=== PATIENT | male | born 1935 | race Two or more races ===

== ENCOUNTER 2023-05-25 10:02 | Outpatient (RCR) | payer MEDICARE, OTHER, SELFPAY ==
[2023-05-25] MEDS: [UNRECOGNIZED DRUG - OTHER] 100 MG IV (10:35)
[2023-05-25 10:44] VITALS: BP 132/60
[2023-05-25 11:20] VITALS: BP 129/60
== END 2023-06-10 23:59 | disposition home or self-care (01) ==
LOC: OID 10:02
PROVIDERS: ATTENDING PHYSICIAN Internal Medicine Rheumatology; FAMILY PHYSICIAN Internal Medicine
DX: M05.60 Rheumatoid arthritis of unspecified site with involvement of other organs and systems (principal)
CPT/HCPCS: 96365; J1602

== ENCOUNTER 2023-07-20 09:49 | Outpatient (RCR) | payer MEDICARE, OTHER, SELFPAY ==
[2023-07-20] MEDS: [UNRECOGNIZED DRUG - OTHER] 100 MG IV (10:32)
[2023-07-20 10:38] VITALS: BP 146/83
== END 2023-07-23 08:31 | disposition home or self-care (01) ==
LOC: OID 09:49
PROVIDERS: ATTENDING PHYSICIAN Internal Medicine Rheumatology; FAMILY PHYSICIAN Internal Medicine
DX: M05.60 Rheumatoid arthritis of unspecified site with involvement of other organs and systems (principal)
CPT/HCPCS: 96365; J1602

== ENCOUNTER 2023-07-28 12:21 | Emergency (ER) | payer MEDICARE, OTHER, SELFPAY ==
[2023-07-28 12:24] VITALS: BP 175/85
--- NOTE | 2023-07-28 12:39 | ED.GENMED ---
History of Present Illness
General
Chief Complaint: Nose Bleed
Time Seen by Provider: 07/28/23 12:39
Travel History
Have you had any contact with someone who has COVID-19?: No
Do you have any symptoms of coronavirus? Fever > 100 degrees, chills, cough, shortness of breath, sore throat, loss of taste or smell, muscle aches, or headache?: No
History of Present Illness
History of Present Illness:
88-year-old male presents to the emergency department for evaluation of a spontaneous nosebleed on the right that began earlier today and has not stopped despite direct pressure. Does not take anticoagulants
Past History
Past History
ED Past Medical History: NIDDM, Other and Other (Rheumatoid arthritis)
ED Past Surgical History: None
Social History
Tobacco: Former smoker
Alcohol: None
Drug: None
Personal:
Living: with family
Employment: Retired
Review of Systems
Review of Systems
Allergies reviewed?: Yes
All Other Systems: ROS reviewed and negative except as documented in HPI and ROS
Phy Exam
Physical Exam
Physical Exam:
GEN: Well appearing, NAD, WDWN
HEENT: Oral mucosa moist, no scleral icterus. No evidence for anterior epistaxis on the right, clot noted in the anterior nare
Cardiac: Regular rate
Lung: No respiratory distress, no tachypnea
MSK: No gross deformity or injuries
Skin: Good color, no pallor or jaundice, no rashes
Neuro: AO x3, moves all extremities freely
Psych: Calm, cooperative
Course
Vital Signs
Initial and Last Documented VS:
Initial Vital Signs
Temp Pulse Resp BP Pulse Ox
98.9 F 60 20 175/85 95
07/28/23 12:24 07/28/23 12:24 07/28/23 12:24 07/28/23 12:24 05/18/24 12:24
Last Documented Vital Signs
Temp Pulse Resp BP Pulse Ox
98.9 F 60 20 175/85 95
07/28/23 12:24 07/28/23 12:24 07/28/23 12:24 07/28/23 12:24 07/28/23 12:24
Comment
Comment:
There was irrigated and packed with 4.5 cm anterior Merisel pack infused with lidocaine and epinephrine. Packing was removed 45 minutes later with good hemostasis. Cautery was performed to the site of bleeding using silver nitrate, no further
bleeding was observed in the emergency department. Discussed need for saline spray
*Critical Care Note
Total Time (30-74mins, 75-104mins- exclusive of procedures): Not Applicable
ED Attending Note
-
Portions of this chart may have been created with voice recognition software.� Occasional wrong word or��sound alike� substitutions may have occurred due to the inherent limitations of voice recognition software.
Discharge Plan
Departure
Patient Disposition: Home (Routine Discharge)
Date of Disposition: 07/28/23
Time of Disposition: 14:17
Patient with high blood pressure during this ER visit?: No
Discharge Problem:
Right-sided epistaxis
Instructions: Nosebleeds (DC)
Prescriptions:
No Action
folic acid 1 MG tablet
1 mg PO DAILY
hydroxychloroquine 200 MG tablet
400 mg PO DAILY
calcium carbonate-vitamin D3 1 EACH tablet
1 ea PO DAILY
cholecalciferol (vitamin D3) [Vitamin D3] 400 UNITS tablet
400 units PO DAILY
metformin 500 mg Tablet
500 mg PO BID
simvastatin 20 mg Tablet
20 mg PO HS
aspirin 81 mg Tablet,Chewable
81 mg PO DAILY
Referrals:
UNKNOWN - PT DOES,NOT KNOW [Family Provider] -
Activity Restrictions/Additional Instructions:
Use over the counter saline spray twice daily to decrease chances of repeat bleeding
DO NOT BLOW YOUR NOSE FOR 24 HOURS
Interventions
Interventions:
*Risk Screen - Suicide Last Done: 07/28/23 12:22
*General Assessment Last Done: 07/28/23 12:22
*Neglect/Abuse Screening Last Done: 07/28/23 12:22
ED- Fall Risk Assessment Last Done: 07/28/23 12:29
*ED COVID-19 Vaccine History Last Done: 07/28/23 12:29
*Nursing Disposition Last Done: 07/28/23 14:22
ED-EENT Assessment Last Done: 07/28/23 12:29
Discharge Date and Time
Discharge Date/Time: 07/28/23 14:23
Print Language: NAURUAN
== END 2023-07-28 14:23 | disposition home or self-care (01) ==
LOC: EMR 12:21
PROVIDERS: EMERGENCY PHYSICIAN Emergency Medicine
DX: R04.0 Epistaxis (principal); E11.9 Type 2 diabetes mellitus without complications; M06.9 Rheumatoid arthritis, unspecified; Z87.891 Personal history of nicotine dependence; Z79.82 Long term (current) use of aspirin
CPT/HCPCS: 99283; 30901

== ENCOUNTER 2023-09-14 09:22 | Outpatient (RCR) | payer MEDICARE, OTHER, SELFPAY ==
[2023-09-14] MEDS: [UNRECOGNIZED DRUG - OTHER] 100 MG IV (10:31)
[2023-09-14 10:42] VITALS: BP 150/57
== END 2023-09-17 08:56 | disposition home or self-care (01) ==
LOC: OID 09:22
PROVIDERS: ATTENDING PHYSICIAN Internal Medicine Rheumatology; FAMILY PHYSICIAN Internal Medicine
DX: M05.60 Rheumatoid arthritis of unspecified site with involvement of other organs and systems (principal)
CPT/HCPCS: 96365; J1602

== ENCOUNTER 2023-11-09 09:10 | Outpatient (RCR) | payer MEDICARE, OTHER, SELFPAY ==
[2023-11-09] MEDS: [UNRECOGNIZED DRUG - OTHER] 100 MG IV (09:54)
[2023-11-09 10:01] VITALS: BP 137/52
== END 2023-11-10 23:59 | disposition home or self-care (01) ==
LOC: OID 09:10
PROVIDERS: ATTENDING PHYSICIAN Internal Medicine Rheumatology; FAMILY PHYSICIAN Internal Medicine
DX: M05.79 Rheumatoid arthritis with rheumatoid factor of multiple sites without organ or systems involvement (principal)
CPT/HCPCS: 96365; J1602

== ENCOUNTER 2024-01-04 09:54 | Outpatient (RCR) | payer MEDICARE, OTHER, SELFPAY ==
[2024-01-04 10:00] VITALS: BP 120/86
[2024-01-04] MEDS: [UNRECOGNIZED DRUG - OTHER] 100 MG IV (10:12)
[2024-01-04 10:42] VITALS: BP 135/70
== END 2024-01-07 09:21 | disposition home or self-care (01) ==
LOC: OID 09:54
PROVIDERS: ATTENDING PHYSICIAN Internal Medicine Rheumatology; FAMILY PHYSICIAN Internal Medicine
DX: M05.79 Rheumatoid arthritis with rheumatoid factor of multiple sites without organ or systems involvement (principal)
CPT/HCPCS: 96365; J1602

== ENCOUNTER 2024-02-29 09:53 | Outpatient (RCR) | payer MEDICARE, OTHER, SELFPAY ==
[2024-02-29 10:00] VITALS: BP 174/83
[2024-02-29] MEDS: [UNRECOGNIZED DRUG - OTHER] 100 MG IV (10:15)
[2024-02-29 11:09] VITALS: BP 151/79
== END 2024-03-03 09:53 | disposition home or self-care (01) ==
LOC: OID 09:53
PROVIDERS: ATTENDING PHYSICIAN Internal Medicine Rheumatology; FAMILY PHYSICIAN Internal Medicine
DX: M05.79 Rheumatoid arthritis with rheumatoid factor of multiple sites without organ or systems involvement (principal)
CPT/HCPCS: 96365; J1602

== ENCOUNTER 2024-03-14 22:39 | Observation (INO) | payer MEDICARE, OTHER, SELFPAY ==
[2024-03-14] VITALS (12 sets, daily range): BP systolic 124–203; BP diastolic 62–106; BMI 19.9
[2024-03-14 15:26] LABS: Venous Blood Gas B.E. -1.1 mmol/L (-4 to +4); Venous Blood Gas HCO3 24.8 mmol/L (22-27); Venous Blood Gas O2 Sat % 44.5 %; Venous Blood Gas pCO2 45 mmHg (35-48); Venous Blood Gas pH 7.35 (7.32-7.43); Venous Blood Gas pO2 30 mmHg (30-50)
[2024-03-14 15:28] LABS: % Basophils 0.5 % (0-2); % Eosinophils 1.2 % (0-6); % Immature Granulocytes 0.7 % (0-0.5); % Lymphocytes 23.5 % (20.5-51.1); % Monocytes 9.8 % (1.7-9.3); % Neutrophils 64.3 % (42.2-75.2); Absolute Eosinophils 0.1 10^3/uL (0-0.7); Absolute Lymphocytes 1.4 10^3/uL (1.2-3.4); Absolute Monocytes 0.6 10^3/uL (0.1-0.6); Absolute Neutrophils 3.9 10^3/uL (1.4-6.5); Hematocrit 41.6 % (39.0-52.0); Hemoglobin 13.3 g/dL (13.0-18.0); Mean Corpuscular Volume 87.6 fL (80.0-94.0); Mean Platelet Volume 8.7 fL (7.4-10.4); Nucleated Red Blood Cells % 0 % (-); Platelet Count 222 10^3/uL (130-400); Red Blood Cell Count 4.75 10^6/uL (4.70-6.10); Red Cell Dist. Width 16.8 % (11.5-14.5)
[2024-03-14 15:44] LABS: Lactic Acid 2.7 mmol/L (0.7-2.0)
[2024-03-14 16:10] LABS: ALT (SGPT) 22 U/L (0-50); AST (SGOT) 30 U/L (17-59); Alkaline Phosphatase 90 U/L (38-126); Blood Urea Nitrogen 33 mg/dl (9-20); Calcium 9.7 mg/dl (8.4-10.2); Carbon Dioxide 25 mmol/L (22-30); Chloride 104 mmol/L (98-107); Glucose 153 mg/dl (70-99); Potassium 6.3 mmol/L (3.5-5.1); Sodium 138 mmol/L (135-145); Total Bilirubin 0.3 mg/dl (0.2-1.3); Total Protein 7.1 g/dl (6.3-8.2); eGFR > 60.00
[2024-03-14 16:30] LABS: B-Hydroxybutyrate 0.16 mmol/L (0.02-0.27)
--- NOTE | 2024-03-14 18:16 | EDRN ---
Dr. Orr in room w/pt
[2024-03-14 19:02] LABS: Glucose - Point of Care 91 mg/dl (70-99)
[2024-03-14] MEDS: NSS 1000 IV ×2 (19:04→23:02)
--- NOTE | 2024-03-14 19:10 | ED.GENMED ---
History of Present Illness
General
Chief Complaint: Abnormal Lab Value
Source: patient and family (I spoke to the patient's son over the phone who is a hospitalist at another hospital)
Exam Limitations: none
Time Seen by Provider: 03/14/24 17:31
Nursing documentation reviewed up to this point in time: agreed with
History of Present Illness
History of Present Illness:
The patient is a pleasant 88-year-old man with a past medical history of insulin-dependent diabetes who recently stopped taking insulin due to episodes of hypoglycemia. Patient also has a history of rheumatoid arthritis and recently had outpatient
blood work ordered by his food service agent. His food service agent notified the patient that his potassium was elevated as well as his anion gap, which prompted him to come to the ED for further evaluation. Patient complains of just feeling very
fatigued but has no specific symptoms. He denies cough and fever. Patient denies nausea and vomiting. He denies diarrhea. He denies chest pain or shortness of breath. His son reports that he seemed short of breath earlier today which is unusual
for him.
Past History
Past History
ED Past Medical History: IDDM and Other (Rheumatoid arthritis)
ED Past Surgical History: None
Social History
Tobacco: Former smoker
Alcohol: None
Drug: None
Personal:
Living: with family
Employment: Retired
Family History
Family History: Other
Review of Systems
Review of Systems
Allergies reviewed?: Yes
All Other Systems: ROS reviewed and negative except as documented in HPI and ROS
Constitutional: Reports fatigue
EENT: Reports no symptoms
Respiratory: Reports no symptoms
Cardiac: Reports no symptoms
ABD/GI: Reports no symptoms
: Reports no symptoms
Musculoskeletal: Reports no symptoms
Skin: Reports no symptoms
Neurological: Reports no symptoms
Endocrine: Reports no symptoms
Hematologic/Lymphatic: Reports no symptoms
Psychiatric: Reports no symptoms
Phy Exam
Physical Exam
Physical Exam:
Physical Exam
General: no apparent distress, not acutely ill
Neck: supple. no meningeal signs. normal psoterior pharynx
Heart: s1/s2 regular rate and rhythm, no murmur. equal radial pulses.
Lungs: no acute respiratory distress. clear bilaterally
Abdomen: normal bowel sounds. not tender. no CVAT
Neuro: alert and oriented. no focal neurological deficits
Skin: no rash
Psychiatric: well kept. interactive and cooperative
Extremities: no edema. no calf tenderness. negative homans. good distal pulses
Course
Orders/Labs/Results
Orders:
Orders
03/14/24 15:14
B-Hydroxybutyrate Urgent
Complete Blood Count/With Diff Urgent
Comprehensive Metabolic Panel Urgent
Lactic Acid Urgent
Venous Blood Gas Urgent
%Oxygen/Room Air: ra
03/14/24 16:41
Electrocardiogram (*1) Urgent
Reason for Study: QTc Monitoring
EKG- Treatment ONCE
03/14/24 18:25
0.9% Sodium Chloride 1000 ml [Nss] 1,000 ml IV BOLUS
CR Chest - 2 Views Urgent
Comment:
Reason For Exam: SOB
03/14/24 18:31
Calcium Gluconate 1,000 mg IV NOW STA
Dextrose 50%-Water [Dextrose 50% Syringe] 12.5 grams IV [id number] PRN
Dextrose 50%-Water [Dextrose 50% Syringe] 25 grams IV NOW STA
Insulin Human Regular [Novolin R] 10 units IV NOW STA
03/14/24 18:33
Bedside Glucose PRE IV Insulin- HyperK+ NOW
03/14/24 19:07
Insulin Human Regular [Novolin R] 5 units IV NOW STA
03/14/24 19:09
Dextrose 50%-Water [Dextrose 50% Syringe] 12.5 grams IV [id number] PRN
Dextrose 50%-Water [Dextrose 50% Syringe] 25 grams IV NOW STA
Insulin Human Regular [Novolin R] 5 units IV NOW STA
Bedside Glucose PRE IV Insulin- HyperK+ NOW
03/14/24 20:03
Bedside Glucose POST IV Insulin- HyperK+ Q1HX2,Q2HX2
03/14/24 20:06
Metoprolol [Lopressor] 25 mg PO NOW STA
03/14/24 20:24
Urinalysis Reflex To Culture Urgent
Date Specimen was Collected: 03/14/24
Time Specimen was Collected: 20:17
03/14/24 20:39
Bedside Glucose POST IV Insulin- HyperK+ Q1HX2,Q2HX2
03/14/24 22:00
Flush (0.9% Sodium Chloride) [Flush (Nss)] See Dose Instructions IV PER PROTOCOL
Abnormal Lab Results
03/14/24 03/14/24 03/14/24
15:14 20:24 21:15
MCHC 32.0 L g/dL
(33.0-37.0)
RDW 16.8 H %
(11.5-14.5)
Immature Gran % 0.7 H %
(0-0.5)
Monocytes % 9.8 H %
(1.7-9.3)
Potassium 6.3 H* mmol/L
(3.5-5.1)
BUN 33 H mg/dl
(9-20)
Glucose 153 H mg/dl
(70-99)
Lactic Acid 2.7 H mmol/L
(0.7-2.0)
Urine Glucose 1+ A
(Negative)
POC Glucose 155 H mg/dl
(70-99)
03/14/24 15:14
03/14/24 21:39
Vital Signs
Initial and Last Documented VS:
Initial Vital Signs
Temp Pulse BP Pulse Ox
96.4 F L 60 156/88 94
03/14/24 14:49 03/14/24 14:49 03/14/24 14:49 03/14/24 14:49
Last Documented Vital Signs
Temp Pulse Resp BP Pulse Ox
97.9 F 78 18 154/72 100
03/14/24 14:58 03/14/24 21:30 03/14/24 21:30 03/14/24 21:00 03/14/24 21:30
MDM/Problems Addressed
Differential Diagnosis Includes:
DKA, acute dehydration, acute renal failure
MDM/Problems Addressed:
Patient presents with acute fatigue
Chronic conditions affecting care: DM
Acute Exacerbation and/or Progression of Chronic Illness:
Patient may have acute hyperglycemia and DKA
*Radiology
Radiology exam reviewed: preliminary read by ED provider (Chest x-ray read by me. Increased lung markings bilaterally) and radiology read reviewed
*Pulse Oximetry
Patient hypoxic: no
*EKG
Interpreted by ED Provider?: Yes
Interpretation: abnormal
Comparison EKG: no comparison EKG present
Rate: bradycardiac
Rhythm: sinus
[place]: normal axis
Interval: normal interval
QRS Pattern: normal QRS
Ischemia: non-specific ST changes
*Home Health Occupational Therapist Interpretation
Rate: normal
Interpretation: normal
Rhythm: sinus
*Critical Care Note
Total Time (30-74mins, 75-104mins- exclusive of procedures): Not Applicable
Data Reviewed
Review of Other/Old Records Reveals: Other (Outpatient history and physical reviewed by me from 02/2024 which shows patient has RA with no organ involvement)
ED Attending Note
-
Portions of this chart may have been created with voice recognition software.� Occasional wrong word or��sound alike� substitutions may have occurred due to the inherent limitations of voice recognition software.
Discharge Plan
Departure
Patient Disposition: Admit
Date of Disposition: 03/14/24
Time of Disposition: 20:27
Admit to: Telemetry
Presentation/result/management discussed w/ accepting MD/DO: Hospitalist
Patient with high blood pressure during this ER visit?: Yes
Condition: Good
Covid-19: Not Applicable
Discharge Problem:
Acidosis, lactic, Acute hyperglycemia
Prescriptions:
No Action
folic acid 1 MG tablet
1 mg PO DAILY
hydroxychloroquine 200 MG tablet
200 mg PO DAILY
metformin 500 mg Tablet
500 mg PO BID
Theragen Tablet
1 tab PO DAILY
calcium carbonate-vitamin D3 [Calcium + D] 600 mg-5 mcg (200 unit) Tablet
1 tab PO DAILY
tamsulosin 0.4 mg Capsule
0.4 mg PO HS
metoprolol succinate 25 mg Tablet Extended Release 24 Hr
25 mg PO BID
rosuvastatin 10 mg Tablet
10 mg PO DAILY
Referrals:
Timothy Villalobos MD [Family Provider] -
Interventions
Interventions:
*Risk Screen - Suicide Last Done: 03/14/24 17:58
*General Assessment Last Done: 03/14/24 17:58
*Neglect/Abuse Screening Last Done: 03/14/24 17:58
ED- Fall Risk Assessment Last Done: 03/14/24 17:58
*ED COVID-19 Vaccine History Last Done: 03/14/24 17:58
NW-Jiqedb-Sorgpsinmi Assessment Last Done: 03/14/24 17:58
Discharge Date and Time
Print Language: BULGARIAN
[2024-03-14] MEDS: DEXTROSE 50% SYRINGE 25 GRAMS IV (19:11)
[2024-03-14] MEDS: NOVOLIN R 5 UNITS IV (19:12)
[2024-03-14] MEDS: CALCIUM GLUCONATE 1000 MG IV (19:12)
[2024-03-14 20:12] LABS: Glucose - Point of Care 89 mg/dl (70-99)
[2024-03-14] MEDS: LOPRESSOR 25 MG PO (20:17)
[2024-03-14 20:35] LABS: Urine Albumin Negative (Neg - Trace); Urine Bilirubin Negative (Negative); Urine Character Clear (Clear); Urine Color Yellow; Urine Glucose 1+ (Negative); Urine Ketone Negative (Negative); Urine Leukocyte Negative (Negative); Urine Nitrite Negative (Negative); Urine Occult Blood Negative (Negative); Urine Specific Gravity 1.015 (<1.030); Urine Urobilinogen Negative (Neg - 1+)
[2024-03-14 21:16] LABS: Glucose - Point of Care 155 mg/dl (70-99)
--- NOTE | 2024-03-14 21:35 | HPS.HSE ---
Family Physician
-
Family Physician: Timothy Villalobos
Chief Complaint
-
Hyperkalemia
History of Present Illness
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
Patient has a history of qrg-qpeckmj-vdncdxccw diabetes currently on metformin, and rheumatoid arthritis on biologic and hydroxychloroquine, previously on steroids and Rituxan, hypertension and hyperlipidemia as well as BPH who presents to the
emergency department with hyperkalemia. He gets infusions of Biologics every 8 weeks and gets routine blood work. He reports that on routine blood work recently had elevated potassium and he was sent to the emergency department for further
evaluation. Initially family thought that he was having DKA but patient has been always had good glucose control his blood glucose was high as 160 at home. He was not tachypneic. He has no recent episodes of diarrhea nausea or vomiting. He has
no acute medication changes. Blood pressure has been stable. Patient himself denies any symptoms. He is a former smoker and no history of COPD exacerbation.
On arrival in the ED he was hypertensive to 154/70 pulse of 82 was not saturation of 99% on room air. X-ray shows emphysema with some pulmonary fibrosis. ECG shows a sinus bradycardia at a rate of 58. No hyperacute T waves. No acute ST or T wave
changes. His potassium was 6.3. Lactic acid was 2.7. His bicarb is 25 and he has a normal anion gap. BUN 33 creatinine 1.0. Glucose 153. VBG shows a pH of 7.35.
Medical History
Past Medical History
Past Medical History: Reports COPD and HTN
Additional Past Medical History:
Rheumatoid arthritis
BPH
Past Surgical History: Reports Other
Social History
Tobacco: Former Smoker
Alcohol: None
Drug: None
Personal: Single
Living: With Family
Family History
Family History: Not pertinent
Allergies / Home Medications
Allergies reflects when Allergies were last updated in [facility].
Home Medications with original date entered in [facility]
Allergy/Medication List:
Allergies
Allergy/AdvReac Type Severity Reaction Status Date / Time
No Known Allergies Allergy Verified 03/14/24 14:58
Home Medications
folic acid 1 mg tablet 1 mg PO DAILY 07/16/12
hydroxychloroquine 200 mg tablet 200 mg PO DAILY 07/16/12
metformin 500 mg tablet 500 mg PO BID 07/07/22
calcium 600 mg (as carbonate)-vitamin D3 5 mcg (200 unit) tablet 1 tab PO DAILY 03/14/24
metoprolol succinate 25 mg tablet,extended release 24 hr 25 mg PO BID 03/14/24
rosuvastatin 10 mg tablet 10 mg PO DAILY 03/14/24
tamsulosin 0.4 mg capsule 0.4 mg PO HS 03/14/24
therapeutic multivitamin 1 tab PO DAILY 03/14/24
Review of Systems
-
History Source: Family
Constitutional: Reports No Symptoms
EENT: Reports No Symptoms
Respiratory: Reports No Symptoms
Cardiac: Reports No Symptoms
Abdomen/GI: Reports No Symptoms
: Reports No Symptoms
Musculoskeletal: Reports No Symptoms
Skin: Reports No Symptoms
Neurological: Reports No Symptoms
Endocrine: Reports No Symptoms
Hematologic/Lymphatic: Reports No Symptoms
Psych: Reports No Symptoms
Physical Exam
Vital Signs
Vital Signs
Temp Pulse Resp BP Pulse Ox
97.9 F 78 18 154/72 100
03/14/24 14:58 03/14/24 21:30 03/14/24 21:30 03/14/24 21:00 03/14/24 21:30
Physical Exam
General: Well Developed, Well Nourished, No Apparent Distress and Comfortable
HEENT: NormoCephalic, Anicteric, Moist mucous membranes and Atraumatic
Respiratory: Clear
Cardiac: S1/S2 and Regular Rhythm
Breast: Deferred by me
GI: Soft, Non Tender, Non Distended and Normal Bowel Sounds
Rectal: Deferred by Provider
Genito-urinary: Deferred by me
Musculoskeletal: No Clubbing, No Cyanosis and No Edema
Neuro: AO x 3 and Nonfocal/grossly intact
Hematologic/Lymphatic: No Lymphadenopathy
Psych: Calm
Laboratory Results
-
03/14/24 15:14
03/14/24 21:39
Laboratory Results
Lactic Acid 2.7 mmol/L (0.7-2.0) H 03/14/24 15:14
Total Bilirubin 0.3 mg/dl (0.2-1.3) 03/14/24 15:14
AST 30 U/L (17-59) 03/14/24 15:14
ALT 22 U/L (0-50) 03/14/24 15:14
Alkaline Phosphatase 90 U/L (38-126) 03/14/24 15:14
Data Reviewed
-
Diagnostic Radiology: Image Personally Visualized and interpreted and Report Reviewed by me
Medical Tests (Nuc Med, Echo, EKG etc): Image Personally Visualized and interpreted
Lab Data: Labs Reviewed by me
Old Records: Reviewed
Impression/Plan
-
IMPRESSION:
88-year-old with history of rheumatoid arthritis on biologic and Plaquenil, hypertension and hyperlipidemia with preserved renal function presents to the emergency department with a next unexplained hyperkalemia. K of 6.5, no anion gap with a
normal bicarb. pH 7.35. Creatinine stable at 1.0, BUN is elevated at 33. Rest of the labs are unremarkable with a normal hemoglobin. He is hypertensive. Lactic acid is still elevated at 2.7 without any evidence of acute infection or sepsis.
PLAN:
1. Hyperkalemia
- admit to telemetry
- s/p insulin/dextrose in ED
- will give lokelma 10 x 1 now
- repeat K in 4 hours.
- etiology unclear at this time includes shifts, occult bleeding (unlikely), adrenal insufficiency (also unlikely) - > check orthostatics, fecal occult stool and am cortisol
- nephrology consult.
2. Lactic acidosiss - Unclear etiology no evidence of acute infection, no abdominal pain/anorexia, no etoh, no dka, no significant dehydration
- stop metformin
- start sitagliptin (d/w family)
- iv fluids overnight
3. DM II
- sitagliptin
- insulin sliding scale for now
DVT PPX - lovenox sq
Code status - Full Code
[2024-03-14] MEDS: FLUSH (NSS) 1 FLUSH IV (21:58)
[2024-03-14] MEDS: LOKELMA 10 GRAM PO (21:59)
[2024-03-14] MEDS: FLOMAX 0.4 MG PO (23:02)
[2024-03-15] VITALS (9 sets, daily range): BP systolic 104–174; BP diastolic 59–95
[2024-03-15 01:03] LABS: Blood Urea Nitrogen 27 mg/dl (9-20); Calcium 9.2 mg/dl (8.4-10.2); Carbon Dioxide 20 mmol/L (22-30); Chloride 107 mmol/L (98-107); Estimated Creatinine Clearance 48 ml/min; Glucose 119 mg/dl (70-99); Potassium 4.7 mmol/L (3.5-5.1); Sodium 137 mmol/L (135-145); eGFR > 60.00
[2024-03-15 01:03] LABS: Glucose - Point of Care 95 mg/dl (70-99)
[2024-03-15 05:41] LABS: Lactic Acid 0.9 mmol/L (0.7-2.0)
[2024-03-15 05:49] LABS: Hematocrit 38.2 % (39.0-52.0); Hemoglobin 12.4 g/dL (13.0-18.0); Mean Corp Hgb Conc. 32.5 g/dL (33.0-37.0); Mean Corpuscular Hgb 28.1 pg (27.0-31.0); Mean Corpuscular Volume 86.6 fL (80.0-94.0); Mean Platelet Volume 9.3 fL (7.4-10.4); Platelet Count 224 10^3/uL (130-400); Red Blood Cell Count 4.41 10^6/uL (4.70-6.10); Red Cell Dist. Width 16.8 % (11.5-14.5); White Blood Cell Count 5.6 10^3/uL (4.8-10.8)
[2024-03-15 05:55] LABS: Creatine Phosphokinase 117 U/L (55-170); Magnesium 1.8 mg/dl (1.6-2.3)
[2024-03-15 06:27] LABS: Cortisol, Random 13.8 ug/dl
[2024-03-15 07:29] LABS: Glucose - Point of Care 94 mg/dl (70-99)
[2024-03-15] MEDS: TOPROL XL 25 MG PO (07:33)
[2024-03-15] MEDS: PLAQUENIL 200 MG PO (07:34)
[2024-03-15] MEDS: CRESTOR 10 MG PO (07:34)
[2024-03-15] MEDS: JANUVIA 50 MG PO (07:34)
[2024-03-15] MEDS: THERAGRAN 1 TABLET PO (07:34)
[2024-03-15] MEDS: HEPARIN 5000 UNITS SC (07:35)
[2024-03-15] MEDS: FOLVITE 1 MG PO (07:35)
[2024-03-15 11:34] LABS: Glucose - Point of Care 123 mg/dl (70-99)
--- NOTE | 2024-03-15 11:46 | W.PN.HOSP.TC ---
Today's Communication/Plan
-
Discharge
Assessment / Plan
Assessment / Plan
88-year-old female was found to have hyperkalemia.
CVS: S1-S2 normal
Chest: Decreased breath sounds bilaterally but clear to auscultation
Abdomen: Soft, NT , Bowel sounds present
Extremities: No edema
# Hyperkalemia
Unclear etiology
Lokelma given
Potassium normalized
# Lactic acidosis-Possible lab Error- Second set improved .Metformin can be restarted.
# Mio-clmpbmp-cltkkthvn diabetes currently on metformin as outpatient. Accu-Cheks and sliding scale coverage.
# Rheumatoid arthritis-on biologic and hydroxychloroquine-Previously on steroids and Rituxan.
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
# Hypertension-continue metoprolol.
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 Will benefit from aspirin. Son said that he was on aspirin but now on hold because of epistaxis. We can restart it.
# Significant weight loss reported by son-discussed about getting a CAT scan of the chest abdomen and pelvis. Son said that his PSA has been stable. I have given him a prescription for CAT scan with results to go to PCP Dr.Mahul Villalobos.
# History of prostate cancer with radiation 2012-Continue Flomax.
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
# Ex-smoker
# DVT prophylaxis on Lovenox .
# Full code
Spoke to patient's son who is a physician ( Hospitalist) and updated.
Aware that hemoglobin A1c is pending. He also prefers that that go back on metformin as the lactic acid was only one-time thing and his creatinine is stable.
Encouraged him to set up access to the portal so he can also review labs.
More than 30 minutes spent in discharge including
Final examination of the patient
Summarizing hospital stay
Instructions for continuing care to all relevant caregivers
Preparation of discharge records, prescriptions, and referral forms
Total time spent (in minutes): over 30 min
Anticipated Discharge: Today
Subjective/Interval History
-
Date of Service: March 15, 2024
Objective Data
-
Labs:
Laboratory Results
03/15/24 03/15/24
00:29 05:15
WBC 5.6
Hgb 12.4 L
Hct 38.2 L
Plt Count 224
Sodium 137
Potassium 4.7 D
Chloride 107
Carbon Dioxide 20 L
BUN 27 H
Creatinine 0.8
Glucose 119 H
Calcium 9.2
Vital Signs:
Vital Signs
Temp Pulse Resp BP Pulse Ox
97.6 F 70 20 174/70 99
03/15/24 11:18 03/15/24 07:33 03/15/24 01:00 03/15/24 07:33 03/15/24 01:44
I&O
03/14/24 03/15/24 03/16/24
06:59 06:59 06:59
Intake Total 480 / 480
Balance 480 / 480
--- NOTE | 2024-03-15 12:13 | W.DS.TRANS ---
Addendum entered and electronically signed by Shonda Crouch MD 03/15/24 18:22:
Dictation- [id number]
Original Note:
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
-
Discharge Instructions:
Discharge Diagnosis/Procedures Hyperkalemia(high potassium)
Mild lactic acidosis
Atherosclerosis
Weight loss
Rheumatoid arthritis
Diabetes
High cholesterol
History of prostate cancer
High blood pressure
Diet As tolerated
Activity As tolerated
Driving Restrictions As prior to admission
Blood Work BMP 1 week ( Results to PCP)
Others Tests CAT scan of the chest abdomen and pelvis with IV
and p.o. contrast
Instructions:
Stand-Alone Forms:
Changes to Home Medications: Yes
Discharge Medications:
DC Medications w/original date entered in [facility]
aspirin 81 mg tablet,delayed release 81 mg PO DAILY Blood clot prevention/tx #30 tabs 03/15/24
calcium 600 mg (as carbonate)-vitamin D3 5 mcg (200 unit) tablet 1 tab PO DAILY Supplement #0 tabs 03/15/24
folic acid 1 mg tablet 1 mg PO DAILY Supplement #0 tabs 03/15/24
hydroxychloroquine 200 mg tablet 200 mg PO DAILY ra #0 tabs 03/15/24
metformin 500 mg tablet 500 mg PO BID Diabetes #0 tabs 03/15/24
metoprolol succinate 25 mg tablet,extended release 24 hr 25 mg PO BID Blood pressure #0 tabs 03/15/24
rosuvastatin 10 mg tablet 10 mg PO DAILY High cholesterol #0 tabs 03/15/24
tamsulosin 0.4 mg capsule 0.4 mg PO HS Urinary issue #0 caps 03/15/24
therapeutic multivitamin 1 tab PO DAILY Supplement #0 tabs 03/15/24
Home Medication Changes
new
ASA
Pending Results: Yes
Additional Pending Results:
HbA1C
== END 2024-03-15 12:52 | disposition home or self-care (01) ==
LOC: ED 22:39
PROVIDERS: Physician Assistant; ADMITTING PHYSICIAN Internal Medicine; ATTENDING PHYSICIAN Hospitalist; EMERGENCY PHYSICIAN Emergency Medicine; FAMILY PHYSICIAN Internal Medicine
DX: E87.5 Hyperkalemia (principal); E87.20 Acidosis, unspecified; R06.02 Shortness of breath; E11.65 Type 2 diabetes mellitus with hyperglycemia; M06.9 Rheumatoid arthritis, unspecified; J84.10 Pulmonary fibrosis, unspecified; J43.9 Emphysema, unspecified; I10 Essential (primary) hypertension; N40.0 Benign prostatic hyperplasia without lower urinary tract symptoms; R00.1 Bradycardia, unspecified; I70.0 Atherosclerosis of aorta; M50.30 Other cervical disc degeneration, unspecified cervical region; M51.369 Other intervertebral disc degeneration, lumbar region without mention of lumbar back pain or lower extremity pain; R09.89 Other specified symptoms and signs involving the circulatory and respiratory systems; Z87.891 Personal history of nicotine dependence; Z79.4 Long term (current) use of insulin; Z79.84 Long term (current) use of oral hypoglycemic drugs; Z60.3 Acculturation difficulty; Z85.46 Personal history of malignant neoplasm of prostate; Z92.3 Personal history of irradiation
CPT/HCPCS: 71046; 80048; 80053; 81003; 82010; 82533; 82550; 82805; 82962; 83036; 83605; 83735; 85025; 85027; 93005; 96361; 96374; 96375; 96376; 99285; G0378

== ENCOUNTER 2024-04-25 09:55 | Outpatient (RCR) | payer MEDICARE, OTHER, SELFPAY ==
[2024-04-25 10:18] VITALS: BP 118/63
[2024-04-25] MEDS: [UNRECOGNIZED DRUG - OTHER] 100 MG IV (10:42)
== END 2024-05-09 23:59 | disposition home or self-care (01) ==
LOC: OID 09:55
PROVIDERS: ATTENDING PHYSICIAN Internal Medicine Rheumatology; FAMILY PHYSICIAN Internal Medicine
DX: M05.79 Rheumatoid arthritis with rheumatoid factor of multiple sites without organ or systems involvement (principal)
CPT/HCPCS: 96365; J1602

== ENCOUNTER → 2024-07-29 14:38 | Outpatient (REF) | payer MEDICARE, OTHER, SELFPAY | LOC: HWRAD 14:38 | PROVIDERS: FAMILY PHYSICIAN Internal Medicine; REFERRING PHYSICIAN Internal Medicine | DX: R94.31 Abnormal electrocardiogram [ECG] [EKG] (principal); R06.09 Other forms of dyspnea; M06.9 Rheumatoid arthritis, unspecified; E78.2 Mixed hyperlipidemia; E11.9 Type 2 diabetes mellitus without complications; I10 Essential (primary) hypertension | CPT/HCPCS: 71046 ==

== ENCOUNTER → 2024-08-12 07:14 | Outpatient (REF) | payer MEDICARE, OTHER, SELFPAY | LOC: RSP 07:14 | PROVIDERS: ATTENDING PHYSICIAN Internal Medicine; FAMILY PHYSICIAN Internal Medicine | DX: J84.9 Interstitial pulmonary disease, unspecified (principal); R06.02 Shortness of breath | CPT/HCPCS: 94727; 94729; 71260; 88738; 94060; Q9967 ==

== ENCOUNTER 2024-10-31 09:31 | Outpatient (RCR) | payer MEDICARE, OTHER, SELFPAY ==
[2024-10-31] MEDS: [UNRECOGNIZED DRUG - OTHER] 100 MG IV (11:05)
[2024-10-31 11:32] VITALS: BP 145/69
[2024-10-31 12:00] VITALS: BP 137/68
== END 2024-11-09 23:59 | disposition home or self-care (01) ==
LOC: OID 09:31
PROVIDERS: ATTENDING PHYSICIAN Internal Medicine Rheumatology
DX: M05.79 Rheumatoid arthritis with rheumatoid factor of multiple sites without organ or systems involvement (principal)
CPT/HCPCS: 36415; 86480; 96365; J1602

== ENCOUNTER 2024-11-28 09:12 | Outpatient (RCR) | payer MEDICARE, OTHER, SELFPAY ==
[2024-11-28 09:24] VITALS: BP 116/54
[2024-11-28] MEDS: [UNRECOGNIZED DRUG - OTHER] 100 MG IV (09:40)
[2024-11-28 10:27] VITALS: BP 127/70
== END 2024-12-01 09:53 | disposition home or self-care (01) ==
LOC: OID 09:12
PROVIDERS: ATTENDING PHYSICIAN Internal Medicine Rheumatology
DX: M05.79 Rheumatoid arthritis with rheumatoid factor of multiple sites without organ or systems involvement (principal)
CPT/HCPCS: 96365; J1602

== ENCOUNTER 2025-01-23 09:05 | Outpatient (RCR) | payer MEDICARE, OTHER, SELFPAY ==
[2025-01-23 09:17] VITALS: BP 118/53
[2025-01-23] MEDS: [UNRECOGNIZED DRUG - OTHER] 100 MG IV (09:34)
== END 2025-01-26 07:58 | disposition home or self-care (01) ==
LOC: OID 09:05
PROVIDERS: ATTENDING PHYSICIAN Internal Medicine Rheumatology
DX: M05.79 Rheumatoid arthritis with rheumatoid factor of multiple sites without organ or systems involvement (principal)
CPT/HCPCS: 96365; J1602